=== PATIENT | female | born 1975 | race Caucasian/White ===

== ENCOUNTER 2022-02-18 14:26 | Emergency (ER) | payer OTHER ==
[2022-02-18 14:52] VITALS: TEMP 98.5
[2022-02-18] MEDS ORDERED: SODIUM CHLORIDE 0.9% 1,000 ML IV ONE (17:27)
[2022-02-18] MEDS ORDERED: KETOROLAC 15 MG/ML 1 ML VIAL IVP STA (17:27)
--- NOTE | 2022-02-18 18:23 | ED ---
General Adult HPI - General Chief complaint: Recheck/Abnormal Lab/Rx Stated complaint: Lt Foot Edema Time Seen by Provider: 02/18/22 17:09 Source: patient Mode of arrival: ambulatory Limitations: no limitations - History of Present Illness Initial comments: Patient is a 46-year-old female with history of complex regional pain syndrome presenting with chief complaint of left foot pain. Patient states that since receiving hip surgery last year, she has been dealing with foot pain, swelling, warmth and redness. Patient states that this morning when she woke up her foot was much warmer than usual and redness spread up to her knee, she marked the line of demarcation with a marker to monitor for any changes, states that it has already started to come down. Patient states that her skin is dry and cracking, this is been going on for quite some time. Patient took her PO morphine at home, which did not relieve the pain. Patient has pain with range of motion and with any pressure applied to the foot. Denies any numbness, tingling, injury or trauma, fever, chills, nausea, vomiting, abdominal pain, chest pain, shortness of breath. - Related Data Home Medications Medication Instructions Recorded Confirmed Morphine Sulfate 5mg 5 mg PO Q12H PRN 02/18/22 02/18/22 Morphine Sulfate ER [Ms Contin] 15 mg PO Q12HR 02/18/22 02/18/22 Morphine Sulfate ER [Ms Contin] 30 mg PO Q12HR 02/18/22 02/18/22 Nabilone 1mg 1 mg PO TID PRN 02/18/22 02/18/22 Nortriptyline HCl [Pamelor] 25 mg PO TID 02/18/22 02/18/22 Pregabalin [Lyrica] 100 mg PO TID 02/18/22 02/18/22 Allergies Allergy/AdvReac Type Severity Reaction Status Date / Time No Known Allergies Allergy Verified 02/18/22 19:25 Review of Systems ROS Statement: Those systems with pertinent positive or pertinent negative responses have been documented in the HPI. ROS Other: All systems not noted in ROS Statement are negative. Past Medical History Past Medical History: No Reported History History of Any Multi-Drug Resistant Organisms: None Reported Past Surgical History: Orthopedic Surgery Past Psychological History: No Psychological Hx Reported Smoking Status: Current every day smoker Past Alcohol Use History: None Reported Past Drug Use History: Marijuana General Exam Limitations: no limitations General appearance: alert, in no apparent distress Head exam: Present: atraumatic, normocephalic, normal inspection Eye exam: Present: normal appearance, EOMI. Absent: scleral icterus Neck exam: Present: normal inspection Respiratory exam: Present: normal lung sounds bilaterally. Absent: respiratory distress, wheezes, rales, rhonchi, stridor Cardiovascular Exam: Present: regular rate, normal rhythm, normal heart sounds. Absent: systolic murmur, diastolic murmur, rubs, gallop, clicks Left Foot/Toe exam: Present: tenderness, swelling. Absent: full ROM (Secondary to pain) Neurovascular tendon exam: Absent: pulse deficit, sensory deficit Neurological exam: Present: alert, oriented X3, CN II-XII intact Psychiatric exam: Present: normal affect, normal mood Skin exam: Present: warm, dry, other (Skin is dry splitting along the plantar surface of the foot) Course Vital Signs 02/18/22 02/18/22 02/18/22 14:48 16:52 19:14 Temperature 98.5 F Pulse Rate 78 91 86 Respiratory 16 18 18 Rate Blood Pressure 110/97 120/85 O2 Sat by Pulse 99 97 96 Oximetry Medical Decision Making - Medical Decision Making Patient is a 46-year-old female with history of complex regional pain syndrome presenting with chief complaint of left foot pain. Patient states that her foot is much more warm and swollen than usual. Patient states that the redness came up to the level of her knee this morning, she marked the level with a marker and states that it has been going down throughout the afternoon. On examination she is exquisitely tender, skin is erythematous with dry skin and flaking on the plantar surface of the foot. Range of motion is limited secondary to pain. Posterior tibial pulses are palpated. CBC is unremarkable. Lactic acid is normal. CMP is unremarkable. CRP is 2.4. Foot and ankle x-ray shows no acute abnormalities. Patient was given Toradol, states there has been some improvement. She appears stable for discharge with outpatient follow-up at this time. Follow-up with PCP this week. Report back to ER with any new or worsening symptoms. I discussed return parameters alarm symptoms. Answered all questions. Patient conveyed verbal understanding and agreed to the plan. I discussed this case with my attending Dr. Chawla. - Lab Data Result diagrams: 02/18/22 18:08 02/18/22 18:08 Lab Results 02/18/22 02/18/22 02/18/22 Range/Units 18:08 18:08 18:08 WBC 10.3 (3.8-10.6) k/uL RBC 4.40 (3.80-5.40) m/uL Hgb 13.1 (11.4-16.0) gm/dL Hct 40.2 (34.0-46.0) % MCV 91.3 (80.0-100.0) fL MCH 29.7 (25.0-35.0) pg MCHC 32.6 (31.0-37.0) g/dL RDW 17.1 H (11.5-15.5) % Plt Count 262 (150-450) k/uL MPV 7.9 Neutrophils % 73 % Lymphocytes % 17 % Monocytes % 7 % Eosinophils % 0 % Basophils % 1 % Neutrophils # 7.5 (1.3-7.7) k/uL Lymphocytes # 1.7 (1.0-4.8) k/uL Monocytes # 0.7 (0-1.0) k/uL Eosinophils # 0.0 (0-0.7) k/uL Basophils # 0.1 (0-0.2) k/uL Anisocytosis Slight ABG Lactic Acid 1.0 (0.5-1.6) mmol/L Sodium 140 (137-145) mmol/L Potassium 4.1 (3.5-5.1) mmol/L Chloride 105 (98-107) mmol/L Carbon Dioxide 26 (22-30) mmol/L Anion Gap 9 mmol/L BUN 8 (7-17) mg/dL Creatinine 0.47 L (0.52-1.04) mg/dL Est GFR (CKD-EPI)AfAm >90 (>60 ml/min/1.73 sqM) Est GFR (CKD-EPI)NonAf >90 (>60 ml/min/1.73 sqM) Glucose 93 (74-99) mg/dL Calcium 9.6 (8.4-10.2) mg/dL Total Bilirubin 0.3 (0.2-1.3) mg/dL AST 30 (14-36) U/L ALT 17 (4-34) U/L Alkaline Phosphatase 63 (38-126) U/L C-Reactive Protein 2.4 H (<1.0) mg/dL Total Protein 8.1 (6.3-8.2) g/dL Albumin 4.9 (3.5-5.0) g/dL Disposition Clinical Impression: Foot pain Disposition: HOME SELF-CARE Condition: Good Instructions (If sedation given, give patient instructions): Complex Regional Pain Syndrome (DC), Arthralgia (ED) Additional Instructions: Follow-up with PCP in one to 2 days. Report back to ER with any new or worsening symptoms. Is patient prescribed a controlled substance at d/c from ED?: No Referrals: None,Stated [Primary Care Provider] - 1-2 days Time of Disposition: 19:36
[2022-02-18 18:28] LABS: Anisocytosis Slight; Basophils # (A) 0.1 k/uL (0-0.2); Basophils % (A) 1 %; Eosinophils % (A) 0 %; HCT 40.2 % (34.0-46.0); HGB 13.1 gm/dL (11.4-16.0); Lymphocytes # (A) 1.7 k/uL (1.0-4.8); Lymphocytes % (A) 17 %; MCH 29.7 pg (25.0-35.0); MCHC 32.6 g/dL (31.0-37.0); MCV 91.3 fL (80.0-100.0); Mean Platelet Volume 7.9; Monocytes # (A) 0.7 k/uL (0-1.0); Monocytes % (A) 7 %; Neutrophils # (A) 7.5 k/uL (1.3-7.7); Neutrophils % (A) 73 %; Platelet Count 262 k/uL (150-450); RDW 17.1 % (11.5-15.5); WBC 10.3 k/uL (3.8-10.6)
[2022-02-18 18:45] LABS: ALT 17 U/L (4-34); AST 30 U/L (14-36); African American GFR (CKD) >90 (>60 ml/min/1.73 sqM); Albumin 4.9 g/dL (3.5-5.0); Alkaline Phosphatase 63 U/L (38-126); Anion Gap 9 mmol/L; Blood Urea Nitrogen 8 mg/dL (7-17); C Reactive Protein 2.4 mg/dL (<1.0); Calcium 9.6 mg/dL (8.4-10.2); Carbon Dioxide 26 mmol/L (22-30); Chloride 105 mmol/L (98-107); Glucose 93 mg/dL (74-99); Non-African American GFR(CKD) >90 (>60 ml/min/1.73 sqM); Potassium 4.1 mmol/L (3.5-5.1); Sodium 140 mmol/L (137-145); Total Bilirubin 0.3 mg/dL (0.2-1.3); Total Protein 8.1 g/dL (6.3-8.2)
--- NOTE | 2022-02-18 19:02 | XR ---
EXAMINATION TYPE: XR ankle complete LT DATE OF EXAM: 02/18/2022 COMPARISON: NONE HISTORY: Pain and swelling TECHNIQUE: 3 view FINDINGS: Ankle mortise is anatomic. I see no fracture nor dislocation. IMPRESSION: No acute abnormality of the left ankle.
--- NOTE | 2022-02-18 19:04 | XR ---
EXAMINATION TYPE: XR foot complete LT DATE OF EXAM: 02/18/2022 COMPARISON: NONE HISTORY: Pain and swelling TECHNIQUE: 3 views FINDINGS: Metatarsals are intact. I see no fracture nor dislocation. There are no erosions. Joint spa darrius are fairly normal. IMPRESSION: No acute abnormality of the left foot. No sign of osteomyelitis. No fracture.
[2022-02-18 19:14] VITALS: RESP 18
[2022-02-18 19:15] VITALS: BP 120/85; PULSE 86
== END 2022-02-18 20:12 | disposition home or self-care (01) ==
LOC: EC 14:26
DX: M79.672 Pain in left foot (principal); F17.200 Nicotine dependence, unspecified, uncomplicated
CPT/HCPCS: 36415; 83605; 80053; 85025; 86140; 73610; 73630; 99283; 96374; 96361; J1885